=== PATIENT | male | born 1985 | race African-American/Black ===

== ENCOUNTER 2018-02-08 10:22 | Emergency (ER) | payer SELFPAY ==
[~2018-02-08] VITALS: Ht 193 cm; Wt 101.2 kg
[2018-02-08 10:28] VITALS: BP 151/73
[2018-02-08] MEDS ORDERED: LIDOCAINE VISCOUS 2% 15ML UD PO ONE (12:00)
[2018-02-08] MEDS ORDERED: cefTRIAXone SOD 1,000 MG VL IM ONE (12:15)
[2018-02-08] MEDS ORDERED: LIDOCAINE 1% HCL (LOCAL ANESTH.) INJ 20ML MDV ONE (12:23)
== END 2018-02-08 12:41 | disposition home or self-care (01) ==
LOC: ER 10:22
DX: J03.90 Acute tonsillitis, unspecified (principal)
CPT/HCPCS: 96372; 99283; J0696; J2001

== ENCOUNTER 2019-06-03 08:37 | Emergency (ER) | payer SELFPAY ==
[~2019-06-03] VITALS: Ht 193 cm; Wt 95.3 kg
[2019-06-03 08:52] VITALS: BP 115/75
[2019-06-03] MEDS ORDERED: cefTRIAXone SOD 1,000 MG VL IM ONE (09:15)
== END 2019-06-03 09:54 | disposition home or self-care (01) ==
LOC: ER 08:37
DX: J03.90 Acute tonsillitis, unspecified (principal); F41.1 Generalized anxiety disorder; F17.210 Nicotine dependence, cigarettes, uncomplicated
CPT/HCPCS: 96372; 99283; J0696

== ENCOUNTER 2019-06-04 09:06 | Emergency (ER) | payer SELFPAY ==
[~2019-06-04] VITALS: Ht 193 cm; Wt 97.5 kg
[2019-06-04 09:13] VITALS: BP 122/69
[2019-06-04] MEDS ORDERED: IPRATROPIUM BROM 0.5 MG/2.5ML INH SOL NEB ONE (09:30)
[2019-06-04] MEDS ORDERED: ALBUTEROL SULF 2.5 MG/0.5ML(0.5%) NEB SOLN NEB ONE (09:30)
== END 2019-06-04 10:14 | disposition home or self-care (01) ==
LOC: ER 09:06
DX: J20.9 Acute bronchitis, unspecified (principal); F41.1 Generalized anxiety disorder; F17.210 Nicotine dependence, cigarettes, uncomplicated
CPT/HCPCS: 71046; 94640; 99283; J7644

== ENCOUNTER 2019-06-05 00:33 | Emergency (ER) | payer SELFPAY ==
[~2019-06-05] VITALS: Ht 193 cm; Wt 109.8 kg
[2019-06-05 03:27] VITALS: BP 118/70
[2019-06-05] MEDS ORDERED: cefTRIAXone SOD 1,000 MG VL IM ONE (03:30)
[2019-06-05] MEDS ORDERED: LIDOCAINE 1% HCL (LOCAL ANESTH.) INJ 20ML MDV ONE (03:32)
== END 2019-06-05 03:40 | disposition home or self-care (01) ==
LOC: ER 00:33
DX: J02.9 Acute pharyngitis, unspecified (principal); F17.210 Nicotine dependence, cigarettes, uncomplicated; R06.02 Shortness of breath
CPT/HCPCS: 96372; 99283; J0696; J2001

== ENCOUNTER 2019-06-10 15:28 | Emergency (ER) | payer SELFPAY ==
[~2019-06-10] VITALS: Ht 193 cm; Wt 108.9 kg
[2019-06-10 15:48] VITALS: BP 120/78
== END 2019-06-10 15:50 | disposition home or self-care (01) ==
LOC: ER 15:28
DX: J02.8 Acute pharyngitis due to other specified organisms (principal); F17.210 Nicotine dependence, cigarettes, uncomplicated; F12.10 Cannabis abuse, uncomplicated

== ENCOUNTER → 2019-08-05 | Emergency (ER) | payer MEDICAID ==
[~2019-08-05] VITALS: Ht 193 cm; Wt 104.3 kg
[~2019-08-05] MED LIST: ONDANSETRON HCL 4 MG/2 ML VIAL IV ONE; PANTOPRAZOLE 40 MG/10 ML VIAL INJ IV ONE; PROCHLORPERAZINE EDISYLATE 5 MG/ML 2ML VIAL IV ONE; PROCHLORPERAZINE EDISYLATE 5 MG/ML 2ML VIAL ONE; SODIUM CHLORIDE 0.9% 1,000 ML IV ONE
[2019-08-05 21:51] LABS: Basophils # (auto) 0 10 ^3/uL (0-0.2); Basophils % (auto) 0.4 % (0.0-2.0); Eosinophils # (auto) 0 10 ^3/uL (0-0.8); Eosinophils % (auto) 0.4 % (0.0-7.0); Hematocrit 43.1 % (41.0-53.0); Hemoglobin 14.7 g/dL (13.5-17.5); Lymphocytes # (auto) 2.9 10 ^3/uL (0.4-5.4); Lymphocytes % (auto) 41.4 % (10.0-50.0); Mean Corpuscular Hemoglobin 32.3 pg (28.0-32.0); Mean Corpuscular Hgb Conc. 34.1 g/dL (32.0-36.0); Mean Corpuscular Volume 94.6 fL (80.0-100.0); Monocytes # (auto) 0.6 10 ^3/uL (0-1.3); Monocytes % (auto) 8.3 % (0.0-12.0); Neutrophils # (auto) 3.4 10 ^3/uL (1.6-8.6); Neutrophils % (auto) 49.5 % (37.0-80.0); Nucleated Red Blood Cells % 0.1 %; Platelet Count (auto) 173 10^3/uL (140-450); Red Blood Cells 4.56 10^6/uL (4.5-5.90); Red Cell Distribution Width 13.1 % (11.8-14.3); White Blood Cell 6.9 10^3/uL (4.4-10.8)
[2019-08-05 22:04] LABS: BUN/Creatinine Ratio 11.9; Calcium 8.6 mg/dL (8.5-10.1); Magnesium 1.9 mg/dL (1.6-2.6); Potassium 3.5 mmol/L (3.5-5.1)
[2019-08-05 23:36] VITALS: BP 108/65
== END | disposition home or self-care (01) ==
LOC: ER 20:32
DX: K29.70 Gastritis, unspecified, without bleeding (principal); K59.00 Constipation, unspecified; N18.2 Chronic kidney disease, stage 2 (mild); F17.210 Nicotine dependence, cigarettes, uncomplicated; F12.10 Cannabis abuse, uncomplicated
CPT/HCPCS: 36415; 71045; 74176; 80048; 82150; 83690; 83735; 85025; 96361; 96374; 96375; 99285; C9113; J0780; J2405; J7030

== ENCOUNTER 2021-03-04 10:09 | Emergency (ER) | payer MEDICAID ==
[~2021-03-04] VITALS: Ht 193 cm; Wt 93.0 kg
[2021-03-04 14:52] VITALS: BP 133/65
[2021-03-04] MEDS ORDERED: AMOX-277 PO (15:26)
[2021-03-04] MEDS ORDERED: ALBUAER3 IN (15:26)
== END 2021-03-04 15:41 | disposition home or self-care (01) ==
LOC: ER 10:09
DX: U07.1 COVID-19 (principal); J06.9 Acute upper respiratory infection, unspecified; F17.210 Nicotine dependence, cigarettes, uncomplicated; F12.10 Cannabis abuse, uncomplicated
CPT/HCPCS: 36415; 87426

== ENCOUNTER 2023-03-03 09:49 | Emergency (ER) | payer MEDICAID ==
[~2023-03-03] VITALS: Ht 193 cm; Wt 105.6 kg
[~2023-03-03 09:49] MED LIST changes: +ALBUAER3 IN; +AMOX875T4 PO; -ONDANSETRON HCL 4 MG/2 ML VIAL IV ONE; -PANTOPRAZOLE 40 MG/10 ML VIAL INJ IV ONE; -PROCHLORPERAZINE EDISYLATE 5 MG/ML 2ML VIAL IV ONE; -PROCHLORPERAZINE EDISYLATE 5 MG/ML 2ML VIAL ONE; -SODIUM CHLORIDE 0.9% 1,000 ML IV ONE
[2023-03-03 10:42] LABS: Urine Bacteria NONE SEEN /hpf (None Seen); Urine Blood Negative /uL (Negative); Urine Clarity Clear (Clear); Urine Color Yellow (Yellow); Urine Protein, UAD Negative (Negative); Urine Specific Gravity 1.025 (1.001-1.035); Urine Urobilinogen Normal (Negative); Urine WBC 1 /hpf (0 - 3); Urine pH 5.5 (5.0-8.0)
[2023-03-03 11:36] VITALS: BP 113/65; PULSE 69; RESP 18; TEMP 98; O2SAT 97
[2023-03-04 11:06] LABS: RPR Non Reactive (Non Reactive)
[2023-03-05 08:07] LABS: Chlamydia Trachomatis, NAA Negative (Negative); Neisseria gonorrhoeae, NAA Negative (Negative)
[2023-03-05 19:06] LABS: Treponema pallidum Ab (FTA-Ab) Non Reactive (Non Reactive)
== END 2023-03-03 12:58 | disposition home or self-care (01) ==
LOC: ER 09:49
DX: N48.89 Other specified disorders of penis (principal); F17.210 Nicotine dependence, cigarettes, uncomplicated; F12.10 Cannabis abuse, uncomplicated; Z20.6 Contact with and (suspected) exposure to human immunodeficiency virus [HIV]
CPT/HCPCS: 81001; 86592; 86703